=== PATIENT | female | born 1980 | race Caucasian/White ===

== ENCOUNTER 2017-07-06 18:15 | Emergency (ER) | payer OTHER ==
[2017-07-06 20:26] VITALS: BP 111/67
[2017-07-06] MEDS ORDERED: Acetaminophen TAB* 325 MG PO ONE (20:29)
--- NOTE | 2017-07-07 03:16 | ED ---
Amanda Herrera Emily, scribed for Karthikeyan Keane MD on 07/06/17 at 2030 . Influenza-Like Illness - HPI Summary HPI Summary: This patient is a 37 year old F presenting to [facility] with a chief complaint of sore throat that began yesterday. The patient rates the pain 9/10 in severity. Symptoms aggravated by nothing. Symptoms alleviated by nothing. Patient reports vomiting, cough, congestion, and headache. Pt denies abd pain and CP. - History of Current Complaint Chief Complaint: EDFluSymptoms Time Seen by Provider: 07/06/17 20:23 Hx Obtained From: Patient Onset/Duration: Sudden Onset, Lasting Days, Still Present Severity: Severe Associated Signs & Symptoms: Cough, Sore Throat, Nasal Congestion, Headache, Vomiting - Allergy/Home Medications Allergies/Adverse Reactions: Allergies Allergy/AdvReac Type Severity Reaction Status Date / Time amoxicillin Allergy Rash Verified 07/06/17 18:21 aspirin Allergy Hives Verified 07/06/17 18:22 latex Allergy Rash Verified 07/06/17 18:22 Penicillins Allergy Rash Verified 07/06/17 18:22 PMH/Surg Hx/FS Hx/Imm Hx Previously Healthy: Yes Sensory History: Denies: Hx Contacts or Glasses Opthamlomology History: Denies: Hx Contacts or Glasses, Hx Legally Blind EENT History: Denies: Hx Deafness Infectious Disease History: No Infectious Disease History: Denies: Traveled Outside the [place] in Last 30 Days - Family History Known Family History: Negative: Cardiac Disease, Diabetes - Social History Occupation: Employed Full-time Lives: Alone Alcohol Use: Rare Alcohol Amount: once a year Substance Use Type: Reports: None Smoking Status (MU): Current Some Day Smoker Type: Cigarettes Review of Systems Positive: Sore Throat Negative: Chest Pain Positive: Cough Positive: Vomiting. Negative: Abdominal Pain Positive: Headache All Other Systems Reviewed And Are Negative: Yes Physical Exam - Summary Physical Exam Summary: Appearance: Well appearing, no pain distress Skin: warm, dry, reflects adequate perfusion Head/face: normal Eyes: EOMI, CHERI ENT: Minimal clear nasal discharge. No sinus tenderness to percussion. Neck: supple, non-tender, No cervical lymphadenopathy. Respiratory: CTA, breath sounds present Cardiovascular: RRR, pulses symmetrical Abdomen: non-tender, soft Bowel Sounds: present Musculoskeletal: normal, strength/ROM intact Neuro: normal, sensory motor intact, A&Ox3 Triage Information Reviewed: Yes Vital Signs On Initial Exam: Initial Vitals Temp Pulse Resp BP Pulse Ox 98.2 F 87 18 111/80 96 07/06/17 18:18 07/06/17 18:18 07/06/17 18:18 07/06/17 18:18 07/06/17 18:18 Vital Signs Reviewed: Yes Diagnostics - Vital Signs Vital Signs Temp Pulse Resp BP Pulse Ox 07/06/17 20:19 97.9 F 83 18 111/67 98 07/06/17 18:18 98.2 F 87 18 111/80 96 - Laboratory Lab Results: Lab Results 07/06/17 Range/Units 19:48 Influenza A (Rapid) Negative (Negative) Influenza B (Rapid) Negative (Negative) Lab Statement: Any lab studies that have been ordered have been reviewed, and results considered in the medical decision making process. Flu Symptom Course/Dx - Course Course Of Treatment: Patient with minor URI symptoms that are treated symptomatically. No fever. - Diagnoses Provider Diagnoses: Upper respiratory infection Discharge - Sign-Out/Discharge Documenting (check all that apply): Discharge/Admit/Transfer - Discharge - Discharge Plan Condition: Good Disposition: HOME Prescriptions: Dexamethasone TAB* [Decadron TAB*] 8 mg PO DAILY 3 Days #6 tab Patient Education Materials: Upper Respiratory Infection (ED) Referrals: Elizabeth Malik MD [Primary Care Provider] - Additional Instructions: Take Mucinex D for congestion. Humidifier while sleeping. Back and smoking. Tylenol, ibuprofen as needed. Return if worse, new symptoms or other concerns as discussed. - Billing Disposition and Condition Condition: GOOD Disposition: HOME The documentation as recorded by the Amanda perez Emily accurately reflects the service I personally performed and the decisions made by me, Karthikeyan Keane MD.
== END 2017-07-06 20:39 | disposition home or self-care (01) ==
LOC: ED 18:15
DX: J06.9 Acute upper respiratory infection, unspecified (principal); R05 Cough; J02.9 Acute pharyngitis, unspecified; R09.81 Nasal congestion; R51 Headache; R11.10 Vomiting, unspecified
CPT/HCPCS: 87502; 99282; A9270-GY

== ENCOUNTER 2018-03-23 14:18 | Emergency (ER) | payer BC ==
[2018-03-23] MEDS ORDERED: Ketorolac INJ* 60 MG/2 ML VIAL IM ONE (14:46)
--- OUTSIDE RECORDS SUMMARY | 2018-03-23 15:11 | XMS REPORT | Continuity of Care Document ---
:1980 External Reference #:[id number] Author Name Sean Solorio MD Address [address] [place] [address] Care Team Providers Name Role Phone Elizabeth Malik M.D. 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 [address] Group Name: [employer] [address] [place] [address] PayID: [id number] Advance Directives Description No Information Available Problems Description No Information Family History Date Family Member(s) Problem(s) Comments General Migraine Social History Type Date Description Comments Sex Unknown Occupation [employer] Tobacco Use Start: Unknown End: Former Cigarette Smoker 1/2 ppd, smoked for Unknown 10 years, quit 1 month ago. Tobacco Use Start: Unknown Never Smoked Cigars Tobacco Use Start: Unknown Never Smoked A Pipe Smokeless Tobacco Never Used Smokeless Tobacco ETOH Use Currently rarely consumes alcohol Tobacco Use Start: Unknown End: Patient is a former Unknown smoker Smoking Status Reviewed: 01/16/18 Patient is a former smoker Allergies, Adverse Reactions, Alerts Date Description Reaction Status Severity Comments 11/28/2017 Penicillin Active 11/28/2017 Aspirin Active 11/28/2017 Amoxicillin Active 01/16/2018 Latex Active 01/16/2018 Honey Bee Venom Active 01/28/2018 Surgical Glue Active rash/itching Medications Medication Date Status Form Strength Qnty SIG Indications Ordering Provider Omeprazole [address] 40mg 1 tab Unknown 000 daily Oxycodone-Abelino Hx Tablets 5-325mg 24tabs 1-2 tabs Sean taminophen 018 - by mouth Jan Solorio, every 4-6 018 hours as needed for pain Immunizations Description No Information Available Vital Signs Date Vital Result Comment 01/28/2018 10:43am Weight 203.00 lb Weight 92.081 kg Height 64 inches 5'4" Height in cm's 162.6 cm BMI (Body Mass Index) 34.8 kg/m2 01/16/2018 11:02am BP Systolic 124 mmHg BP Diastolic 77 mmHg Heart Rate 69 /min Respiratory Rate 18 /min Weight 202.00 lb Weight 91.627 kg Height 64 inches 5'4" Height in cm's 162.6 cm BMI (Body Mass Index) 34.7 kg/m2 11/28/2017 11:15am Weight 205.00 lb Weight 92.988 kg Height 64 inches 5'4" Height in cm's 162.6 cm BMI (Body Mass Index) 35.2 kg/m2 Results Test Date Facility Test Result H/L Range Note Laboratory test [facility] TSH (Thyroid 3.99 N 0.34-5.60 finding 8 c/o [facility] Stim Horm) mcIU/[place] [address] [phone] Laboratory test [facility] Surgical SEE RESULT 1 finding 8 c/o [facility] Pathology BELOW [place], [place] [id number] [phone] 1 SEE RESULT BELOW Name: KARMEN RYAN : [address]: Sean Solorio MD Acct: [id number] Unit: [id number] AGE: 37 Location: OR Re01/22/18 SEX: F Status: DEP [facility] [place] SPEC: [id number] KERWIN: 01/22/18- SUBM DR: Sean Solorio MD REQ: [id number] RECD: 01/22/18 STATUS: SOUT _ ORDERED: LEVEL 5 FINAL DIAGNOSIS Thyroid, left lobe, hemithyroidectomy: -- Multinodular follicular hyperplasia. -- Benign parathyroid gland. -- No evidence of neoplasia. PRE-OPERATIVE DIAGNOSIS Left sided thyroid nodule. GROSS DESCRIPTION The specimen is received in formalin labeled, Left Lobe Thyroid, and consists of a 26 g, 5.1 x 4.2 by up to 2.5 cm thyroid lobe. The capsule is smooth to shaggy anderson-red with mild focal cauterization. There is a dominant 3.7 by up to 3.0 x 2.1 cm anderson-pink multinodular lesion with mild focal hemorrhage, which abuts the inked capsule. Additionally, there is a 0.8 x 0.7 x 0.6 cm seemingly discrete anderson focally hemorrhagic lesion within the inferior specimen, 0.5 cm from the larger mass. The remaining cut surface is homogeneous red- brown. The specimen is inked, serially sectioned from superior to inferior and small business representative sections are submitted in cassettes A through H to include discrete lesion in cassettes D and E. Signed by and Reported on: Anna Saravia MD 01/24/18 0950 END OF REPORT DEPARTMENT OF PATHOLOGY, [address] [place] [address] Barrett Clark M.D. Director [facility] # [id number] Procedures Date Code Description Status 01/22/2018 79817 Thyroid Lobectomy, Unilateral Completed 01/22/2018 43018 Thyroid Lobectomy, Unilateral Completed Encounters Type Date Location Provider Dx Diagnosis Office Visit 11/28/2017 [place] Sean Montoya E04.1 Nontoxic single 11:15a 03/11/07 MD Lyndsey thyroid nodule Plan of Treatment No Information Available
[2018-03-23 15:54] VITALS: BP 112/65
--- NOTE | 2018-03-24 06:14 | ED ---
Back Pain - HPI Summary HPI Summary: Pt. is a 38 y.o female who presents to the ER for ongoing back pain x 3 weeks. Pt. does not recall any specific injury or fall. She does do a lot of heavy lifting at work. Pt. has been taking tylenol with little improvement. She denies radicular pain into legs, numbness, tingling, weakness, bowel or bladder incontinence/retention, fever, abd. pain, urinary sxs. Past hx of thyroid nodule excision 2 months ago. Sxs are mild in severity. Standing straight and movement makes sxs worse. Nothing makes sxs better. - History of Current Complaint Chief Complaint: EDBackInjuryPain Stated Complaint: BACK PAIN Time Seen by Provider: 03/23/18 14:22 Hx Obtained From: Patient Pain Intensity: 5 Pain Scale Used: 0-10 Numeric - Allergies/Home Medications Allergies/Adverse Reactions: Allergies Allergy/AdvReac Type Severity Reaction Status Date / Time amoxicillin Allergy Rash Verified 03/23/18 14:21 aspirin Allergy Hives Verified 03/23/18 14:21 latex Allergy Rash Verified 03/23/18 14:21 Penicillins Allergy Rash Verified 03/23/18 14:21 PMH/Surg Hx/FS Hx/Imm Hx Previously Healthy: Yes GI History: Reports: Hx Gastroesophageal Reflux Disease Sensory History: Reports: Hx Contacts or Glasses - contacts Denies: Hx Legally Blind, Hx Deafness, Hx Hearing Aid Opthamlomology History: Reports: Hx Contacts or Glasses - contacts Denies: Hx Legally Blind - Surgical History Surgery Procedure, Year, and Place: tubal ligation, 2002, [facility] [facility] [place] Hx Anesthesia Reactions: No Infectious Disease History: No Infectious Disease History: Denies: Traveled Outside the [place] in Last 30 Days - Family History Known Family History: Positive: Non-Contributory Negative: Cardiac Disease, Diabetes - Social History Occupation: Employed Full-time Lives: With Family Alcohol Use: None Alcohol Amount: once a year Substance Use Type: Reports: None Smoking Status (MU): Former Smoker Type: Cigarettes Amount Used/How Often: 1/2 pack for 10 yrs Have You Smoked in the Last Year: Yes Review of Systems Constitutional: Negative Negative: Fever, Chills Cardiovascular: Negative Respiratory: Negative Gastrointestinal: Negative Genitourinary: Negative Negative: burning, dysuria, frequency, flank pain Positive: Other - back pain Skin: Negative Negative: Weakness, Paresthesia, Numbness All Other Systems Reviewed And Are Negative: Yes Physical Exam Triage Information Reviewed: Yes Vital Signs On Initial Exam: Initial Vitals Temp Pulse Resp BP Pulse Ox 97.6 F 63 19 123/81 100 03/23/18 14:20 03/23/18 14:20 03/23/18 14:20 03/23/18 14:20 03/23/18 14:20 Vital Signs Reviewed: Yes Appearance: Positive: Well-Appearing - Pt. sitting on bed in NAD. Skin: Positive: Warm, Dry Head/Face: Positive: Normal Head/Face Inspection Eyes: Positive: Normal, EOMI Neck: Positive: Supple Musculoskeletal: Positive: Other - Midline tenderness to the upper lumbar spine and paraspinal region. 5/5 strength in bilateral LEs. 2/4 DTR. Neurological: Positive: Normal, CN Intact II-III Psychiatric: Positive: Affect/Mood Appropriate Diagnostics - Vital Signs Vital Signs Temp Pulse Resp BP Pulse Ox 03/23/18 15:53 98.1 F 53 16 112/65 99 03/23/18 14:20 97.6 F 63 19 123/81 100 - Laboratory Lab Statement: Any lab studies that have been ordered have been reviewed, and results considered in the medical decision making process. Back Pain Course/Dx - Course Course Of Treatment: Pt. presenting with atraumatic low back pain. She is afebrile. She has no neuro deficts on exam or evidence of cauda equina syndrome. Pt. given a dose of toradol. Naproxen and flexeril rx. Advised warm compresses. Close f.u with PCP. To return to ER if sxs change or worsen - Diagnoses Differential Diagnosis/HQI/PQRI: Positive: Arthritis, Cauda Equina Syndrome, Epidural Abscess, Strain, Sprain Provider Diagnoses: Lumbar strain Discharge - Sign-Out/Discharge Documenting (check all that apply): Patient Departure - Discharge Plan Condition: Good Disposition: HOME Prescriptions: Cyclobenzaprine TAB* [Flexeril 10 MG TAB*] 10 mg PO TID PRN #9 tab PRN Reason: Pain Naproxen [Naprosyn 500 mg tab] 500 mg PO BID #20 tablet Patient Education Materials: Low Back Strain (ED) Referrals: Elizabeth Malik MD [Primary Care Provider] - Additional Instructions: Call PCP tomorrow for a follow up appointment Take medication as directed Apply warm compresses Avoid heavy lifting Return to ER for increased pain, fever, numbness/tingling/weakness in legs, or loss of bowel or bladder function - Billing Disposition and Condition Condition: GOOD Disposition: Home
== END 2018-03-23 15:53 | disposition home or self-care (01) ==
LOC: ED 14:18
DX: S39.012A Strain of muscle, fascia and tendon of lower back, initial encounter (principal); M54.9 Dorsalgia, unspecified; Z88.0 Allergy status to penicillin; Z87.891 Personal history of nicotine dependence; W19.XXXA Unspecified fall, initial encounter; Y92.9 Unspecified place or not applicable
CPT/HCPCS: 96372; 99282; J1885

== ENCOUNTER 2018-07-05 08:46 | Emergency (ER) | payer BC ==
[2018-07-05 09:11] VITALS: BP 119/76
--- NOTE | 2018-07-05 09:26 | UC ---
Throat Pain/Nasal David HPI - HPI Summary HPI Summary: has had sinus congestion for 2 weeks, tried TC meds and not working facial presurre has worsened over past 2 days and now has bilateral ear pain and ST with phlegm no cough - History of Current Complaint Chief Complaint: UCGeneralIllness Stated Complaint: SINUS ISSUE BODYACHES Time Seen by Provider: 07/05/18 09:05 Hx Obtained From: Patient Hx Last Menstrual Period: just finishing ?: No Onset/Duration: Gradual Onset Severity: Moderate Pain Intensity: 8 Associated Signs & Symptoms: Positive: Sinus Discomfort, Nasal Discharge. Negative: Fever - Allergies/Home Medications Allergies/Adverse Reactions: Allergies Allergy/AdvReac Type Severity Reaction Status Date / Time amoxicillin Allergy Rash Verified 07/05/18 09:02 aspirin Allergy Hives Verified 07/05/18 09:02 latex Allergy Rash Verified 07/05/18 09:02 Penicillins Allergy Rash Verified 07/05/18 09:02 Home Medications: Home Medications Ibuprofen 07/05/18 [History] PMH/Surg Hx/FS Hx/Imm Hx Previously Healthy: Yes Endocrine History: Hypothyroidism - Surgical History Surgical History: Yes Surgery Procedure, Year, and Place: tubal ligation, 2002, [facility]. Thyroidectomy 2018 - Family History Known Family History: Positive: Non-Contributory Negative: Cardiac Disease, Diabetes - Social History Occupation: Employed Full-time - [employer] Lives: With Family Alcohol Use: None Alcohol Amount: once a year Substance Use Type: None Smoking Status (MU): Former Smoker Type: Cigarettes Amount Used/How Often: 1/2 pack for 10 yrs Have You Smoked in the Last Year: Yes When Did the Patient Quit Smoking/Using Tobacco: 2 months ago Review of Systems All Other Systems Reviewed And Are Negative: Yes Constitutional: Positive: Fatigue Skin: Positive: Negative Eyes: Negative: Drainage ENT: Positive: Sore Throat, Ear Ache, Sinus Congestion, Sinus Pain/Tenderness Respiratory: Positive: Negative. Negative: Shortness Of Breath Cardiovascular: Positive: Negative Musculoskeletal: Positive: Negative Neurological: Positive: Negative. Negative: Headache Psychological: Positive: Negative Is Patient Immunocompromised?: No Physical Exam Triage Information Reviewed: Yes Appearance: Well-Appearing, Obese Vital Signs: Initial Vital Signs Temp 99.1 F 07/05/18 09:04 Pulse 57 07/05/18 09:04 Resp 18 07/05/18 09:04 BP 119/76 07/05/18 09:04 Pulse Ox 100 07/05/18 09:04 Vital Signs Reviewed: Yes Eyes: Positive: Conjunctiva Clear. Negative: Discharge ENT: Positive: Pharynx normal, Nasal congestion, TMs normal, Sinus tenderness Neck exam: Normal Neck: Positive: No Lymphadenopathy Respiratory Exam: Normal Respiratory: Positive: Lungs clear Cardiovascular Exam: Normal Cardiovascular: Positive: RRR Musculoskeletal Exam: Normal Musculoskeletal: Positive: Strength Intact, ROM Intact Neurological Exam: Normal Neurological: Positive: Alert Psychological Exam: Normal Skin Exam: Normal Skin: Negative: Rashes Throat Pain/Nasal Course/Dx - Differential Dx/Diagnosis Differential Diagnosis/HQI/PQRI: Influenza, Sinusitis, URI Provider Diagnosis: Sinusitis Discharge - Sign-Out/Discharge Documenting (check all that apply): Patient Departure All imaging exams completed and their final reports reviewed: No Studies - Discharge Plan Condition: Good Disposition: HOME Prescriptions: Azithromycin TAB* [Zithromax TAB (Z-RENEA) 250 mg #6 tabs] 2 tab PO .TODAY, THEN 1 DAILY #1 renea Patient Education Materials: Sinusitis (ED) Referrals: Elizabeth Malik MD [Primary Care Provider] - 3 Days (if no better) Additional Instructions: drink plenty of fluids start antibiotic and take as directed Tylenol 1000mg every 6 hours as needed for fever - Billing Disposition and Condition Condition: GOOD Disposition: Home
== END 2018-07-05 09:32 | disposition home or self-care (01) ==
LOC: UCEAST 08:46
DX: J32.9 Chronic sinusitis, unspecified (principal); Z87.891 Personal history of nicotine dependence; Z88.0 Allergy status to penicillin; Z88.6 Allergy status to analgesic agent; Z91.040 Latex allergy status; E03.9 Hypothyroidism, unspecified
CPT/HCPCS: 99212; G0463